=== PATIENT | male | born 1970 | race Caucasian/White ===

== ENCOUNTER 2019-06-10 11:54 | Emergency (ER) | payer OTHER ==
--- NOTE | 2019-06-10 15:34 | ER ---
Nurse's Notes [facility] Name: Santi Bill Age: 48 yrs Sex: Male : 1970 Arrival Date: 06/10/2019 Time: 11:57 Bed 11 [facility] MD: Diagnosis: Foot Strain Presentation: 06/10 12:05 Presenting complaint: Patient states: Was jogging yesterday, reports that the pain is sg in the topside of the right foot, denies any trauma or injury, states the pain is worsened by activity and bearing weight but is still able to ambulate at this time. Transition of care: patient was not received from another setting of care. Onset of symptoms was June 10, 2019. Risk Assessment: Do you want to hurt yourself or someone else? Patient reports no desire to harm self or others. Initial Sepsis Screen: Does the patient meet any 2 criteria? No. Patient's initial sepsis screen is negative. Does the patient have a suspected source of infection? No. Patient's initial sepsis screen is negative. Care prior to arrival: None. 12:05 Method Of Arrival: Ambulatory sg 12:05 Acuity: NEREIDA 4 sg Historical: - Allergies: 12:04 No Known Allergies; sg - Home Meds: 12:04 losartan oral oral [Active]; sg - PMHx: 12:04 Gout; Hypertension; sg - Immunization history:: Adult Immunizations up to date. - Social history:: Smoking status: Patient/guardian denies using tobacco, Patient uses alcohol, occasionally. - Ebola Screening: : Patient negative for fever greater than or equal to 101.5 degrees Fahrenheit, and additional compatible Ebola Virus Disease symptoms Patient denies exposure to infectious person Patient denies travel to an Ebola-affected area in the 21 days before illness onset No symptoms or risks identified at this time. Screenin:00 Abuse screen: Denies threats or abuse. Denies injuries from another. Nutritional sg screening: No deficits noted. Tuberculosis screening: No symptoms or risk factors identified. Never had TB. Fall Risk None identified. Assessment: 13:59 General: Appears in no apparent distress. well groomed, well developed, well nourished, sg Behavior is calm, cooperative, appropriate for age. Pain: Complains of pain in lateral side of right foot and dorsum of right foot Quality of pain is described as aching. Neuro: Level of Consciousness is awake, alert, obeys commands, Oriented to person, place, time, [employer] are equal bilaterally Moves all extremities. Full function Gait is steady, Speech is normal, Facial symmetry appears normal, Pupils are PERRLA. Cardiovascular: Capillary refill is brisk in bilateral fingers Patient's skin is warm and dry. Chest pain is denied. Respiratory: Airway is patent Respiratory effort is even, unlabored, Respiratory pattern is regular, symmetrical. GI: Abdomen is flat, non-distended, Bowel sounds Reports normal bowel habits, tolerance of fluids, tolerance of food. : No signs and/or symptoms were reported regarding the genitourinary system. EENT: No signs and/or symptoms were reported regarding the EENT system. Derm: Skin is pink, warm \T\ dry. Musculoskeletal: Circulation, motion, and sensation intact. Range of motion: intact in all extremities, Reports pain in right foot. 14:45 Reassessment: Patient appears in no apparent distress at this time. Patient and/or hb family updated on plan of care and expected duration. Pain level reassessed. Patient is alert, oriented x 3, equal unlabored respirations, skin warm/dry/pink. Vital Signs: 12:03 BP 138 / 89; Pulse 86; Resp 17; Temp 98.2; Pulse Ox 100% on R/A; Weight 76.66 kg; sg Height 5 ft. 8 in. (172.72 cm); Pain 6/10; 12:03 Body Mass Index 25.70 (76.66 kg, 172.72 cm) ED Course: 11:57 Patient arrived in ED. rg4 12:00 Arm band placed on. 12:06 Triage completed. 13:48 Reed Bertrand PA is PHCP. [facility] 13:48 Amaury Mendoza MD is Attending Physician. [facility] 14:00 No provider procedures requiring assistance completed. sg 15:23 Foot Right 3 View XRAY In Process Unspecified. EDMS Administered Medications: No medications were administered Outcome: 15:33 Discharge ordered by . [facility] 15:45 Patient left the ED. Signatures: Dispatcher [employer] EDMS Stephen More RN RN Reed Bertrand PA PA [facility] Kimmy Spencer RN RN Jessica Chakraborty rg4
--- NOTE | 2019-06-10 15:35 | EDPHYS ---
Physician Documentation [facility] Name: Santi Bill Age: 48 yrs Sex: Male : 1970 Arrival Date: 06/10/2019 Time: 11:57 Bed 11 Private MD: ED Physician Amaury Mendoza HPI: 06/10 14:08 This 48 yrs old Male presents to ER via Ambulatory with complaints of Foot jmm Pain. 14:08 The patient presents with pain. Onset: The symptoms/episode began/occurred gradually, 3 jmm day(s) ago. Modifying factors: The symptoms are alleviated by nothing. the symptoms are aggravated by weight bearing. Associated signs and symptoms: Pertinent negatives fever. This is a 48 year old male with a history of gout, htn that presents to the ED with complaints of right lateral foot pain which began after running Wednesday evening. Pain is worsened on walking. . Historical: - Allergies: 12:04 No Known Allergies; sg - Home Meds: 12:04 losartan oral oral [Active]; sg - PMHx: 12:04 Gout; Hypertension; sg - Immunization history:: Adult Immunizations up to date. - Social history:: Smoking status: Patient/guardian denies using tobacco, Patient uses alcohol, occasionally. - Ebola Screening: : Patient negative for fever greater than or equal to 101.5 degrees Fahrenheit, and additional compatible Ebola Virus Disease symptoms Patient denies exposure to infectious person Patient denies travel to an Ebola-affected area in the 21 days before illness onset No symptoms or risks identified at this time. ROS: 14:08 Constitutional: Negative for fever, chills, and weight loss, Cardiovascular: Negative jmm for chest pain, palpitations, and edema, Respiratory: Negative for shortness of breath, cough, wheezing, and pleuritic chest pain. 14:08 MS/extremity: Positive for pain. 14:08 All other systems are negative. Exam: 14:08 Constitutional: This is a well developed, well nourished patient who is awake, alert, jmm and in no acute distress. Head/Face: atraumatic. Eyes: EOMI, no conjunctival erythema appreciated ENT: Moist Mucus Membranes Neck: Trachea midline, Supple Chest/axilla: Normal chest wall appearance and motion. Cardiovascular: Regular rate and rhythm. No edema appreciated Respiratory: Normal respirations, no respiratory distress appreciated Abdomen/GI: Non distended, soft Back: Normal ROM Skin: General appearance color normal 14:08 Musculoskeletal/extremity: no pain elicited on palpatin of the right foot, no erythema, no swelling appreciated, dorsalis pedis pulse . 14:08 Skin: Appearance: Color: normal in color. 14:08 Neuro: Orientation: is normal, Mentation: is normal, Memory: is normal. 14:08 Psych: Behavior/mood is pleasant, cooperative. Vital Signs: 12:03 BP 138 / 89; Pulse 86; Resp 17; Temp 98.2; Pulse Ox 100% on R/A; Weight 76.66 kg; sg Height 5 ft. 8 in. (172.72 cm); Pain 6/10; 12:03 Body Mass Index 25.70 (76.66 kg, 172.72 cm) sg MDM: 14:04 Patient medically screened. [facility] 15:32 Data reviewed: vital signs, nurses notes. Counseling: I had a detailed discussion with meaghan the patient and/or guardian regarding: the historical points, exam findings, and any diagnostic results supporting the discharge/admit diagnosis, radiology results, the need for outpatient follow up, to return to the emergency department if symptoms worsen or persist or if there are any questions or concerns that arise at home. ED course: Patient advised to follow up with pcp and is otherwise advised to return to the ED if symptoms worsen. Patient understood and agrees with the plan of care. . 06/10 14:07 Order name: Foot Right 3 View XRAY [facility] Administered Medications: No medications were administered Disposition: 06/10/19 15:33 Discharged to Home. Impression: Foot Strain. - Condition is Stable. - Discharge Instructions: Foot Sprain. - Medication Reconciliation Form, Thank You Letter, Antibiotic Education, Prescription Opioid Use form. - Work release form (06/10/19 15:45). sg - Follow up: Private Physician; When: 2 - 3 days; Reason: Recheck today's complaints, Continuance of care, Re-evaluation by your physician. Addendum: 06/12/2019 09:53 Co-signature as Attending Physician, Amaury Mendoza MD I agree with the assessment and k dr plan of care. Signatures: Dispatcher [employer] EDMS Stephen More RN RN sg Rittger, MD MD asif Rebolledo Joel, PA PA jmm Corrections: (The following items were deleted from the chart) 06/10 15:45 15:33 06/10/2019 15:33 Discharged to Home. Impression: Foot Strain. Condition is sg Stable. Forms are Medication Reconciliation Form, Thank You Letter, Antibiotic Education, Prescription Opioid Use. Follow up: Private Physician; When: 2 - 3 days; Reason: Recheck today's complaints, Continuance of care, Re-evaluation by your physician. meaghan
--- NOTE | 2019-06-10 15:47 | RAD REPORT ---
EXAM DESCRIPTION: RAD - Foot Right 3 View - 06/10/2019 3:22 pm CLINICAL HISTORY: Right foot pain FINDINGS: No fracture or dislocation is seen
[2019-06-10 16:27] VITALS: BP 138/89; TEMP 98.2; O2SAT 100
== END 2019-06-10 15:45 | disposition home or self-care (01) ==
LOC: ER 11:54
DX: S96.911A Strain of unspecified muscle and tendon at ankle and foot level, right foot, initial encounter (principal); X58.XXXA Exposure to other specified factors, initial encounter; Z72.0 Tobacco use
CPT/HCPCS: 99282